=== PATIENT | female | born 1985 | race Caucasian/White ===

== ENCOUNTER 2017-09-23 14:43 | Emergency (ER) | payer SELFPAY ==
[~2017-09-23] VITALS: Ht 170.2 cm; Wt 54.4 kg
--- NOTE | 2017-09-23 16:10 | NUR ---
DR HOBSON AT THE BEDSIDE FOR EVAL AND EXAM.
[2017-09-23] MEDS ORDERED: BENZONATATE 100 MG CAPSULE PO ONE (16:30)
[2017-09-23] MEDS ORDERED: ONDANSETRON ODT 4 MG TAB.RAPDIS SL ONE (16:30)
[2017-09-23] MEDS ORDERED: ALBUTEROL SULFATE 2.5 MG/3 ML NEBU NEB ONE (16:30)
[2017-09-23] MEDS ORDERED: ALBUTEROL SULFATE 2.5 MG/3 ML NEBU ONE (16:43)
[2017-09-23] MEDS ORDERED: BENZONATATE 100 MG CAPSULE ONE (16:54)
[2017-09-23] MEDS ORDERED: ONDANSETRON ODT 4 MG TAB.RAPDIS ONE (16:54)
[2017-09-23] MEDS ORDERED: IBUPROFEN 600 MG TABLET PO ONE (17:45)
[2017-09-23] MEDS ORDERED: ACETAMINOPHEN ES 500 MG TABLET PO ONE (17:45)
[2017-09-23] MEDS ORDERED: IBUPROFEN 600 MG TABLET ONE (17:59)
[2017-09-23] MEDS ORDERED: ACETAMINOPHEN ES 500 MG TABLET ONE (17:59)
--- NOTE | 2017-09-23 18:01 | NUR ---
PT STATES FEELING BETTER.
[2017-09-23 18:14] VITALS: BP 112/80
--- NOTE | 2017-09-23 18:15 | NUR ---
Patient discharged to home in stable conditon. Written and verbal after care instructions given. Patient verbalizes understanding of instructions.
== END 2017-09-23 18:15 | disposition home or self-care (01) ==
LOC: ER 14:43
DX: J20.8 Acute bronchitis due to other specified organisms (principal); B96.89 Other specified bacterial agents as the cause of diseases classified elsewhere
CPT/HCPCS: 71010; 94640; 99283; A4663; Q0162